=== PATIENT | female | born 1955 | race Caucasian/White ===

== ENCOUNTER 2021-08-16 15:45 | Emergency (ER) | payer OTHER ==
[~2021-08-16] VITALS: Ht 162.6 cm; Wt 80.0 kg
[2021-08-16 16:50] VITALS: BP 204/101
[2021-08-16] MEDS ORDERED: DIPHTH,PERTUSS(ACELL),TET TOX 0.5 ML DISP.SYRIN. VAX IM ONE (17:15)
--- NOTE | 2021-08-16 18:05 | PHYS DOC ---
Past History Past Surgical History: No Surgical History (HAILEY GREENE APRN) General Adult EDM: Chief Complaint: LACERATION/AVULSION HPI: HPI: Patient is a 66-year-old female who presents to the emergency department for a laceration to her right index finger that occurred after she cut it on a glass picture. Patient is unsure of her last tetanus shot. She denies any decreased range of motion or decreased sensation in her finger. (HAILEY GREENE APRN) Review of Systems: Review of Systems: Musculoskeletal: See HPI Integument: See HPI Neurologic: See HPI (HAILEY GREENE APRN) Current Medications: Current Meds: Current Medications Medications (Trade) Dose Ordered Sig/Antony Start Time Stop Time Status Last Admin Dose Admin Diphtheria/ Tetanus/Acell Pertussis (Boostrix) 0.5 ml ONCE ONCE 08/16/21 17:15 08/16/21 17:18 DC 08/16/21 17:53 0.5 ML (HAILEY GREENE APRN) Allergies: Allergies: Allergies Coded Allergies Type Severity Reaction Last Updated Verified ciprofloxacin Allergy Unknown 08/16/21 Yes doxycycline Allergy Unknown 08/16/21 Yes sulfamethoxazole Allergy Unknown 08/16/21 Yes trimethoprim Allergy Unknown 08/16/21 Yes (HAILEY GREENE APRN) Physical Exam: PE: Constitutional: Well developed, well nourished, no acute distress, non-toxic appearance. [] HENT: Normocephalic, atraumatic, bilateral external ears normal, oropharynx moist, no oral exudates, nose normal. [] Eyes: PERRL, EOMI, conjunctiva normal, no discharge. [] Neck: Normal range of motion, no stridor Cardiovascular: Normal peripheral perfusion Lungs & Thorax: Normal work of breathing, no tachypnea Abdomen: Soft and flat Skin: Warm, dry, no erythema, no rash. [] Back: Normal range of motion Extremities: No tenderness, no cyanosis, no clubbing, ROM intact, no edema. Right second finger: 1.5 cm laceration that is superficial noted to the palmar aspect of patient's right hand proximal to the DIP joint, range of motion intact, no active bleeding, neuro intact, no visible foreign bodies, no tendon involvement. Neurologic: Alert and oriented X 3, normal motor function, normal sensory function, no focal deficits noted. [] Psychologic: Affect normal, judgement normal, mood normal. [] (HAILEY GREENE APRN) Current Patient Data: Vital Signs: Vital Signs Date Time Temp Pulse Resp B/P (MAP) Pulse Ox O2 Delivery O2 Flow Rate FiO2 08/16/21 16:50 98.3 93 22 204/101 (135) 95 Room Air (HAILEY GREENE APRN) EKG: EKG: [] (HAILEY GREENE APRN) Radiology/Procedures: Radiology/Procedures: [] (HAILEY GREENE APRN) Heart Score: C/O Chest Pain: N/A Risk Factors: Risk Factors: DM, Current or recent (<one month) smoker, HTN, HLP, family history of CAD, obesity. Risk Scores: Score 0 - 3: 2.5% MACE over next 6 weeks - Discharge Home Score 4 - 6: 20.3% MACE over next 6 weeks - Admit for Clinical Observation Score 7 - 10: 72.7% MACE over next 6 weeks - Early Invasive Strategies (HAILEY GREENE APRN) Course & Med Decision Making: Course & Med Decision Making Pertinent Labs and Imaging studies reviewed. (See chart for details) [] Patient presents to the emergency department for superficial laceration to her right finger. Patient is unsure of her last tetanus shot so this was updated in the emergency department today. No tendon involvement or foreign bodies. Laceration was cleansed in the ER and was repaired with Dermabond. Patient tolerated procedure. Patient educated on wound care. Patient's blood pressure was mildly elevated in the emergency department. She states that she took her blood pressure medication in the emergency department waiting room just prior to it being checked. Patient's blood pressure was checked prior to discharge and it was still mildly elevated however patient took her blood pressure medication within the last hour. Patient is asymptomatic at this time. She is advised to continue taking her medications as directed and monitor her blood pressure at home. I discussed with patient all findings as well as the need to follow-up with PCP for further evaluation and treatment or return to the ER if any new or worsening symptoms. Strict return precautions were also discu ssed at length. Patient voiced understanding and agreement with the plan. Patient is hemodynamically stable at the time of disposition. (HAILEY GREENE APRN) Dragon Disclaimer: Dragon Disclaimer: This electronic medical record was generated, in whole or in part, using a voice recognition dictation system. (HAILEY GREENE APRN) Departure Departure: Impression: Primary Impression: Laceration Disposition: 01 HOME / SELF CARE / HOMELESS Condition: GOOD Referrals: DENISE UPTON (PCP) Patient Instructions: Fingertip Laceration Additional Instructions: You were seen in the emergency department today for a laceration to your finger. This was repaired with skin glue. Please not pick at the glue. Do not submerge your hand in any water for at least 48 hours. Please keep the laceration site clean and dry. You can keep the bandage in place. Monitor for any signs of infection which include redness, warmth, swelling or drainage. Your tetanus was updated in the ER today. Your blood pressure was elevated in the emergency department today, make sure that you are taking your blood pressure medication as directed. You can also monitor your blood pressure at home. Follow-up with your primary care provider within a week. Return to the emergency department if you develop any signs of infection, increased swelling, increased pain, decreased range of motion or decrease sensation in your extremity. Dragon Disclaimer This chart was dictated in whole or in part using Voice Recognition software in a busy, high-work load, and often noisy Emergency Department environment. It may contain unintended and wholly unrecognized errors or omissions. (MELINA BLUM MD) Attending Signature Attending Signature I have participated in the care of this patient and I have reviewed and agree with all pertinent clinical information above including history, exam, and recommendations. (MELINA BLUM MD) HAILEY GREENE APRN Aug 16, 2021 18:05 MELINA BLUM MD Aug 18, 2021 02:38
== END 2021-08-16 18:12 | disposition home or self-care (01) ==
LOC: ER 15:45
DX: S61.210A Laceration without foreign body of right index finger without damage to nail, initial encounter (principal); Z88.1 Allergy status to other antibiotic agents; Z88.2 Allergy status to sulfonamides; W25.XXXA Contact with sharp glass, initial encounter; Y93.89 Activity, other specified; Y92.89 Other specified places as the place of occurrence of the external cause; Y99.8 Other external cause status
CPT/HCPCS: 12001; 90471; 90715; 99283